=== PATIENT | female | born 1985 | race Caucasian/White ===

== ENCOUNTER 2022-11-10 09:38 | Emergency (ER) | payer OTHER ==
[~2022-11-10] VITALS: Ht 162.6 cm; Wt 56.7 kg
[2022-11-10 10:27] LABS: CREATININE 0.7 mg/dL (0.6-1.3); POTASSIUM 3.8 mmol/L (3.5-5.1)
[2022-11-10] MEDS ORDERED: LEVO150T8 PO (10:37)
[2022-11-10 10:45] VITALS: BP 110/86
[2022-11-10 10:45] LABS: THYROID STIMULATING HORMONE 3.93 mIU/mL (0.358-3.740)
--- NOTE | 2022-11-10 10:45 | NUR ---
Patient discharged to home in stable condition. Written and verbal after care instructions given. Patient verbalizes understanding of instructions. Stressed follow up or return to ER for worsening s/s.
== END 2022-11-10 10:45 | disposition home or self-care (01) ==
LOC: ER 09:38
DX: O99.282 Endocrine, nutritional and metabolic diseases complicating pregnancy, second trimester (principal); E89.0 Postprocedural hypothyroidism; Z3A.19 19 weeks gestation of pregnancy; Z85.850 Personal history of malignant neoplasm of thyroid; Z76.0 Encounter for issue of repeat prescription
CPT/HCPCS: 36415; 84443; 84480; A4663